=== PATIENT | male | born 1965 | race Caucasian/White ===

== ENCOUNTER → 2017-02-20 | Outpatient (CLI) | payer OTHER ==
[~2017-02-20] MED LIST: ATENOLOL25 MG PO; NORCO 10-325 T1 EACH PO
== END ==
LOC: RT 11:24
DX: R06.00 Dyspnea, unspecified (principal)
CPT/HCPCS: 71020; 94060; 94729

== ENCOUNTER → 2022-06-15 | Outpatient (CLI) | payer MEDICARE ==
[2022-06-15 14:34] LABS: HEMOGLOBIN 14.5 gm/dl (14.0-17.5); RED BLOOD COUNT 5.04 M/UL (4.20-5.50); WHITE BLOOD COUNT 6.4 K/UL (4.5-11.0)
[2022-06-15 15:08] LABS: BUN/CREATININE RATIO 13 (0-10)
[2022-06-16 07:10] LABS: HBSAG SCREEN Negative (Negative); HCV AB <0.1 (0.0-0.9); HEP A AB, IGM Negative (Negative); HEP B CORE AB, IGM Negative (Negative); HEPATITIS B SURF AB QUANT <3.1 mIU/mL (Immunity>9.9); VITAMIN D, 25-HYDROXY 32.6 ng/mL (30.0-100.0)
== END ==
LOC: LAB 13:48
PROVIDERS: Nurse Practitioner Acute Care
DX: K76.0 Fatty (change of) liver, not elsewhere classified (principal)
CPT/HCPCS: 36415; 80053; 80074; 82607; 83735; 85027; 85610; 86317; 86708; 86709